=== PATIENT | male | born 1965 | race Caucasian/White ===

== ENCOUNTER 2022-09-11 16:06 | Emergency (ER) | payer MEDICAID ==
[~2022-09-11] VITALS: Ht 165.1 cm; Wt 78.0 kg
[2022-09-11 16:12] VITALS: BP 157/81
[2022-09-11 17:00] LABS: BASOPHILS % 0.4 % (0.0-2.0); EOSINOPHILS % 1.1 % (0.0-5.0); HEMATOCRIT. 38.3 % (42.0-52.0); HEMOGLOBIN. 13.2 g/dL (14.0-18.0); LYMPHOCYTES % 10.7 % (20.0-50.0); MEAN CORPUSCULAR HEMOGLOBIN 33.6 pg (28.0-32.0); MEAN CORPUSCULAR VOLUME 97.8 fL (80.0-94.0); MEAN PLATELET VOLUME 6.8 fl (7.4-10.4); MONOCYTES % 7.2 % (2.0-8.0); NEUTROPHILS % 80.6 % (40.0-76.0); PLATELET 299 x1000/uL (130-400); RED BLOOD CELL COUNT 3.92 mill/uL (4.7-6.1); RED CELL DISTRIBUTION WIDTH 13.5 % (11.6-14.6)
[2022-09-11 17:08] LABS: PARTIAL THROMBOPLASTIN TIME 27.5 sec (23.4-31.0); PROTHROMBIN TIME 10.3 sec (9.6-11.0)
[2022-09-11 17:10] LABS: CHLORIDE 91 mEq/L (98-107)
[2022-09-11] MEDS ORDERED: SODIUM CHLORIDE 0.9% 1,000 ML IV ONE (19:30)
== END 2022-09-12 00:49 | disposition home or self-care (01) ==
LOC: ER 16:06
DX: R55 Syncope and collapse (principal); E87.1 Hypo-osmolality and hyponatremia; E72.51 Non-ketotic hyperglycinemia; E86.0 Dehydration; D53.9 Nutritional anemia, unspecified; I10 Essential (primary) hypertension; I45.10 Unspecified right bundle-branch block
CPT/HCPCS: 36415; 71045; 80053; 82962; 83880; 84484; 85025; 85610; 85730; 93005; 96360; 99285; J7030; Z7610